=== PATIENT | female | born 1980 | race Caucasian/White ===

== ENCOUNTER 2019-07-16 13:20 | Outpatient (CLI) | payer BC, SELFPAY ==
[2019-07-16 14:02] VITALS: BMI 35.6
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
== END 2019-07-16 15:30 | disposition home or self-care (01) ==
LOC: WPOUT 13:49 → OBT 13:49
PROVIDERS: Referring Provider Obstetrics & Gynecology; Visit Provider Obstetrics & Gynecology
DX: Z34.92 Encounter for supervision of normal pregnancy, unspecified, second trimester (principal)
CPT/HCPCS: 59025; 59050; 99218; G0378